=== PATIENT | male | born 1940 | race Caucasian/White ===

== ENCOUNTER 2022-05-15 10:54 | Emergency (ER) | payer MEDICARE, SELFPAY ==
[2022-05-15 11:12] VITALS: BP 143/66; PULSE 71; RESP 20; TEMP 36.6; O2SAT 100
--- NOTE | 2022-05-15 12:37 | ED.SKABFB ---
HPI - Skin/Abscess/Foreign Bdy General Chief complaint: Skin/Abscess/Foreign Body Stated complaint: boil on back Time Seen by Provider: 05/15/22 12:00 Source: patient and family Mode of arrival: ambulatory Limitations: no limitations History of Present Illness HPI narrative: Patient family present today complaining of an abscess to patient's mid back x4 days. It did open up a few days ago and has been draining some purulent discharge. Patient currently rates his pain 7/10. He has been taking some Keflex for the past 4 days without relief of symptoms. Related Data Home Medications Medication Instructions Recorded Confirmed aspirin 25 mg-dipyridamole 200 mg 1 cap PO BID 05/15/22 05/15/22 capsule,ext.release 12 hr multiphase atorvastatin 40 mg tablet 20 tablet PO DAILY 05/15/22 05/15/22 levothyroxine 200 mcg tablet 1 tablet PO DAILY 05/15/22 05/15/22 (Euthyrox) Allergies Allergy/AdvReac Type Severity Reaction Status Date / Time No Known Allergies Allergy Unverified 05/15/22 11:45 Review of Systems Review of Systems: CONSTITUTIONAL: Denies body aches, fever, chills, or sweats. EYES: Denies visual changes, redness, or discharge. ENT: Denies rhinorrhea, congestion, sore throat, or otalgia. CARDIOVASCULAR: Denies chest pain, palpitations, or edema. RESPIRATORY: Denies cough or dyspnea. GASTROINTESTINAL: Denies abdominal pain, nausea, vomiting, or diarrhea. GENITOURINARY: Denies dysuria or hematuria. SKIN: Denies rash, itching, or wounds.+ Abscess to mid back MUSCULOSKELETAL: Denies back pain, joint pain, or myalgia. NEUROLOGIC: Denies headache, numbness, tingling, or weakness. PSYCH: Denies depression or anxiety. Exam Narrative: GENERAL: Well-appearing, well-nourished, and in no acute distress. HEAD: Normocephalic, atraumatic. EYES: EOMI. No redness or drainage. Conjunctivae normal. ENT: Mucous membranes pink and moist. NECK: Normal AROM. CHEST: No respiratory distress. EXTREMITIES: Normal range of motion. No edema. SKIN: Warm, dry, no rash. Capillary refill normal. Normal skin turgor. 8 x 8 cm area of erythema and fluctuance to the right mid back that is tender to palpation. 2 pinpoint holes in the center draining small amount of purulent discharge. NEURO: No focal deficits. Alert and oriented x3. Gait steady. Patient has aphasia and at times needs to write down what he wants to express. PSYCH: Normal affect. No signs of depression or anxiety. Course Course Level of Care: Express Care Visit Vital Signs Vital signs: Vital Signs Temperature 97.9 F 05/15/22 11:12 Pulse Rate 71 05/15/22 11:12 Respiratory Rate 20 05/15/22 11:12 Blood Pressure 143/66 H 05/15/22 11:12 Pulse Oximetry 100 05/15/22 11:12 Oxygen Delivery Room Air 05/15/22 11:12 Temperature 97.9 F 05/15/22 11:12 Pulse Rate 71 05/15/22 11:12 Respiratory Rate 20 05/15/22 11:12 Blood Pressure 143/66 H 05/15/22 11:12 Pulse Oximetry 100 05/15/22 11:12 Oxygen Delivery Room Air 05/15/22 11:12 Reviewed. Pt has been instructed to follow up with his PCP regarding his elevated blood pressure today. Procedures Abscess I/D back: Date of Incision: 05/15/22 Time of Incision: 12:15 Local Anesthetic: lidocaine 1% Amount of anesthesia used (mL): 5 Technique: incised with #11 blade Amount of fluid expressed (mL): 10 Irrigation: Yes Packing used?: iodoform I&D Results: Pus and Blood Abcess I&D Additional Comments: Dressed with large Band-Aid MDM - Skin/Abscess/Foreign Bdy Differential Diagnosis Differential diagnosis: Likely abscess of skin or subcutaneous tissue, cellulitis and other (cyst) Critical Care Time Critical Care Time Critical Care Time: No Discharge Plan Discharge Clinical Impression: Abscess of back, Cellulitis of back Patient Disposition: Home, Self-Care Condition: Stable Instructions: Antibiotic Form, Absc
== END 2022-05-15 13:03 | disposition home or self-care (01) ==
PROVIDERS: Emergency Provider Nurse Practitioner
DX: L02.212 Cutaneous abscess of back [any part, except buttock and flank] (principal); L03.312 Cellulitis of back [any part except buttock and flank]; Z79.82 Long term (current) use of aspirin
CPT/HCPCS: 10061; 99213; G0463